=== PATIENT | male | born 1970 | race Caucasian/White ===

== ENCOUNTER → 2018-12-05 | Day surgery (SDC) | payer OTHER | LOC: AMB 05:46 | PROVIDERS: ATTEND Internal Medicine Gastroenterology | DX: Z12.11 Encounter for screening for malignant neoplasm of colon (principal); Z53.8 Procedure and treatment not carried out for other reasons ==

== ENCOUNTER → 2019-04-10 | Outpatient (CLI) | payer BC | LOC: GMAM 10:38 | PROVIDERS: ATTEND Family Medicine | DX: Z12.5 Encounter for screening for malignant neoplasm of prostate (principal); Z79.899 Other long term (current) drug therapy ==

== ENCOUNTER → 2020-06-03 | Outpatient (CLI) | payer BC | LOC: GMAM 16:52 | PROVIDERS: ATTEND Family Medicine | DX: Z12.5 Encounter for screening for malignant neoplasm of prostate (principal); E78.2 Mixed hyperlipidemia; I10 Essential (primary) hypertension ==